=== PATIENT | female | born 1980 | race Caucasian/White ===

== ENCOUNTER 2020-02-23 08:41 | Inpatient (IN) | payer BC ==
[2020-02-19 14:44] LABS: BASOPHILS # (AUTO) 0.1 (0.0-0.1); BASOPHILS % 0.5 % (0.0-1.0); EOSINOPHILS # (AUTO) 0.1 (0.0-0.4); EOSINOPHILS % 0.6 % (0.0-6.0); HEMATOCRIT 40.3 % (34.2-44.1); HEMOGLOBIN 13.1 g/dL (12.0-16.0); LYMPHOCYTES # (AUTO) 2.4 (1.0-3.2); LYMPHOCYTES % 20.8 % (18.0-39.1); MEAN CORPUSCULAR HEMOGLOBIN 28.7 pg (28-32); MEAN CORPUSCULAR HGB CONC 32.5 g/dL (31-35); MEAN CORPUSCULAR VOLUME 88.2 fL (81-99); MONOCYTES # (AUTO) 0.7 (0.2-0.8); MONOCYTES % 6.4 % (4.4-11.3); NEUTROPHILS # (AUTO) 8.1 (2.1-6.9); NEUTROPHILS % 71.2 % (38.7-80.0); PLATELET COUNT 355 x10e3/uL (140-360); RED BLOOD COUNT 4.57 x10e6/uL (3.6-5.1); RED CELL DISTRIBUTION WIDTH 13.2 % (11.7-14.4)
[2020-02-19 14:51] LABS: ANION GAP 13.5 mmol/L (8-16); BLOOD UREA NITROGEN 8 mg/dL (7-26); BUN/CREATININE RATIO 11 (6-25); CALCIUM 9.1 mg/dL (8.4-10.2); CARBON DIOXIDE 22 mmol/L (22-29); CHLORIDE 104 mmol/L (98-107); EST GLOMERULAR FILTRATION RATE > 60 ML/MIN (60-); GLUCOSE 156 mg/dL (74-118); POTASSIUM 4.5 mmol/L (3.5-5.1); SODIUM 135 mmol/L (136-145)
[~2020-02-23] VITALS: Ht 167.6 cm; Wt 154.2 kg
[2020-02-23] VITALS (7 sets, daily range): BP systolic 131–135; BP diastolic 60–72
[~2020-02-23 08:41] MED LIST: ELIQUIS5 MG PO; LEVOTHYROXINE50 MCG PO; LEXAPRO10 MG PO; METOPROLOL PO; ZYRTEC10 MG PO
[2020-02-23] MEDS ORDERED: CEFAZOLIN SOD 1 GM/NS 50ML 100 ML IV ONE (09:01)
[2020-02-23] MEDS ORDERED: MORPHINE SULFATE 2 MG/ML SYR 1ML IV PRN (09:30)
[2020-02-23] MEDS ORDERED: SCOPOLAMINE 1.5 MG PATCH TOP SCH (09:30)
[2020-02-23] MEDS ORDERED: ONDANSETRON HCL INJ 2MG/ML 2ML 2 MG/ML VIAL IV PRN (09:30)
[2020-02-23] MEDS: LACTATED RINGER'S 1,000 ML IV SCH ×3 (09:30→23:31)
[2020-02-23] MEDS ORDERED: BUPIVACAINE 0.25% 30ML SDV ONE (09:39)
[2020-02-23] MEDS ORDERED: FAMOTIDINE 20 MG/2 ML VIAL IV ONE (10:00)
[2020-02-23] MEDS ORDERED: METOCLOPRAMIDE HCL 10 MG/2ML VIAL ONE ×2 (10:00→12:00)
[2020-02-23] MEDS ORDERED: LIDOCAINE HCL (LTA) 4 ML SOLN ONE (10:26)
[2020-02-23] MEDS ORDERED: ONDANSETRON HCL INJ 2MG/ML 2ML 2 MG/ML VIAL ONE ×2 (12:00→13:02)
[2020-02-23] MEDS ORDERED: PROMETHAZINE HCL (IM) 25 MG/ML VIAL IM ONE (12:05)
[2020-02-23] MEDS ORDERED: ACETAMINOPHEN 1000 MG/100 ML 100 ML IV ONE (12:05)
[2020-02-23] MEDS ORDERED: FENTANYL CITRATE/PF 100MCG/2 ML INJ ONE ×2 (12:27→13:11)
[2020-02-23] MEDS ORDERED: GLYCOPYRROLATE INJ 0.2 MG/ML VIAL ONE (13:02)
[2020-02-23] MEDS ORDERED: LIDOCAINE HCL 2% LOCAL INJ 5 ML SDV VIAL INJ ONE (13:02)
[2020-02-23] MEDS ORDERED: PROPOFOL IV EMULSION 10 MG/ML 20 ML VIAL ONE (13:02)
[2020-02-23] MEDS ORDERED: DESFLURANE 240 ML BTL INH ONE (13:02)
[2020-02-23] MEDS ORDERED: NEOSTIGMINE 1 MG/ML 10ML VIAL ONE (13:02)
[2020-02-23] MEDS ORDERED: INSULIN REGULAR, HUMAN 100 UNIT/1 ML 3ML VIAL ONE (13:09)
[2020-02-23] MEDS ORDERED: MIDAZOLAM HCL 2 MG/2 ML VIAL ONE (13:11)
[2020-02-23] MEDS ORDERED: HYDRALAZINE HCL 20 MG/ML VIAL ONE (13:19)
[2020-02-23] MEDS: APIXABAN 5 MG TABLET PO SCH (17:33)
[2020-02-23] MEDS: METOPROLOL TARTRATE 50 MG TAB PO SCH (17:34)
[2020-02-23] MEDS ORDERED: LORAZEPAM 0.5 MG TAB PO PRN (19:45)
[2020-02-23] MEDS ORDERED: ENOXAPARIN SOD INJ 40 MG/0.4 ML SYR SC SCH (21:00)
[2020-02-23] MEDS ORDERED: ESCITALOPRAM OXALATE 10 MG TAB PO SCH (21:00)
[2020-02-23] MEDS ORDERED: LORATADINE 10 MG TAB PO SCH (21:00)
[2020-02-23] MEDS ORDERED: PROMETHAZINE 25MG/ NS 50ML (IV) IV PRN (22:00)
[2020-02-24 00:27] VITALS: BP 143/87
[2020-02-24 04:00] VITALS: BP 137/74
[2020-02-24 05:54] LABS: BASOPHILS # (AUTO) 0.1 (0.0-0.1); BASOPHILS % 0.4 % (0.0-1.0); HEMATOCRIT 38.9 % (34.2-44.1); HEMOGLOBIN 12.3 g/dL (12.0-16.0); LYMPHOCYTES % 16.8 % (18.0-39.1); MEAN CORPUSCULAR HEMOGLOBIN 28.5 pg (28-32); MEAN CORPUSCULAR HGB CONC 31.6 g/dL (31-35); MEAN CORPUSCULAR VOLUME 90.3 fL (81-99); MONOCYTES # (AUTO) 0.7 (0.2-0.8); MONOCYTES % 6.1 % (4.4-11.3); NEUTROPHILS # (AUTO) 9.1 (2.1-6.9); NEUTROPHILS % 76.3 % (38.7-80.0); PLATELET COUNT 347 x10e3/uL (140-360); RED BLOOD COUNT 4.31 x10e6/uL (3.6-5.1); RED CELL DISTRIBUTION WIDTH 13.4 % (11.7-14.4)
[2020-02-24] MEDS ORDERED: LEVOTHYROXINE SODIUM 50 MCG TAB PO SCH (06:00)
[2020-02-24 06:16] LABS: ALANINE AMINOTRANSFERASE 29 IU/L (0-55); ALBUMIN 3.1 g/dL (3.5-5.0); ALBUMIN/GLOBULIN RATIO 0.8 (0.8-2.0); ALKALINE PHOSPHATASE 64 IU/L (40-150); ANION GAP 13.6 mmol/L (8-16); BLOOD UREA NITROGEN < 5 mg/dL (7-26); CALCIUM 8.9 mg/dL (8.4-10.2); CARBON DIOXIDE 26 mmol/L (22-29); CHLORIDE 105 mmol/L (98-107); CREATININE, SERUM 0.69 mg/dL (0.57-1.11); EST GLOMERULAR FILTRATION RATE > 60 ML/MIN (60-); GLUCOSE 171 mg/dL (74-118); MAGNESIUM 1.9 MG/DL (1.3-2.1); PHOSPHORUS 3.1 MG/DL (2.3-4.7); POTASSIUM 4.6 mmol/L (3.5-5.1); SODIUM 140 mmol/L (136-145)
[2020-02-24 06:19] LABS: BUN/CREATININE RATIO 7 (6-25)
[2020-02-24] MEDS ORDERED: HYDROCODONE/APAP 7.5MG-325MG 1 EA TAB PO PRN (07:30)
[2020-02-24 07:54] VITALS: BP 147/92
[2020-02-24 08:14] VITALS: BP 147/92
[2020-02-24] MEDS: APIXABAN 5 MG TABLET PO SCH (09:00)
[2020-02-24] MEDS: METOPROLOL TARTRATE 50 MG TAB PO SCH (09:09)
[2020-02-24] MEDS: LACTATED RINGER'S 1,000 ML IV SCH (09:10)
[2020-02-24 11:09] VITALS: BP 150/87
[2020-02-24] MEDS ORDERED: TYLENOL # 31 EA PO (11:20)
[2020-02-24] MEDS ORDERED: ZOFRAN4 MG PO (11:21)
== END 2020-02-24 12:04 | disposition home or self-care (01) | DRG 621 ==
LOC: OR 08:41 → PACU V 09:18 → MED/SURG3 15:31
PROVIDERS: ADMIT Internal Medicine; ATTEND Internal Medicine
PROC: 0DB64Z3 Excision of Stomach, Percutaneous Endoscopic Approach, Vertical (ICD-10-PCS; principal; 2020-02-23 11:00)
DX: E66.01 Morbid (severe) obesity due to excess calories (principal); Z68.43 Body mass index [BMI] 50.0-59.9, adult; I48.91 Unspecified atrial fibrillation; G47.33 Obstructive sleep apnea (adult) (pediatric); Z88.1 Allergy status to other antibiotic agents; Z88.5 Allergy status to narcotic agent; E11.9 Type 2 diabetes mellitus without complications; I11.9 Hypertensive heart disease without heart failure; E03.9 Hypothyroidism, unspecified; J30.9 Allergic rhinitis, unspecified; Z83.3 Family history of diabetes mellitus; Z82.49 Family history of ischemic heart disease and other diseases of the circulatory system; Z98.84 Bariatric surgery status; Z20.828 Contact with and (suspected) exposure to other viral communicable diseases
CPT/HCPCS: 36415; 71046; 80048; 80053; 81025; 82948; 83735; 84100; 85025; 93005; J0360; J0690; J1817; J2001; J2250; J2405; J2550; J2710; J2765; J3010; J7121; U0002